=== PATIENT | female | born 1960 | race Caucasian/White ===

== ENCOUNTER 2019-01-22 08:36 | Outpatient (CLI) | payer OTHER | END 2019-01-22 23:59 | disposition home or self-care (01) | LOC: RAD 08:36 | PROVIDERS: ATTEND Family Medicine | DX: R74.8 Abnormal levels of other serum enzymes (principal) | CPT/HCPCS: 76700 ==

== ENCOUNTER 2019-04-10 10:14 | Day surgery (SDC) | payer OTHER ==
[2019-04-10] VITALS (8 sets, daily range): BP systolic 114–128; BP diastolic 60–87
[~2019-04-10] VITALS: Ht 160 cm; Wt 68.2 kg
[2019-04-10] MEDS ORDERED: ZOL50T PO (10:33)
[2019-04-10] MEDS ORDERED: LEVO25TA2 PO (10:34)
[2019-04-10] MEDS ORDERED: OMEP20TA5 PO (10:35)
[2019-04-10] MEDS ORDERED: ALPR-623 PO (10:35)
[2019-04-10] MEDS ORDERED: fentaNYL/PF 50MCG/1 ML 2ML syringe ONE (10:49)
[2019-04-10] MEDS ORDERED: MIDAZolam 5mg/5ml vial ONE (10:50)
[2019-04-10] MEDS ORDERED: LIDOcaine Viscous 15ml cup ONE (10:50)
== END 2019-04-10 12:41 | disposition home or self-care (01) ==
LOC: GI LAB 10:14
PROVIDERS: ATTEND Internal Medicine Gastroenterology
DX: K31.1 Adult hypertrophic pyloric stenosis (principal); R10.9 Unspecified abdominal pain; K31.5 Obstruction of duodenum
CPT/HCPCS: 43249; 74176; C1726; J2250; J3010; J7040; 99152; A4620

== ENCOUNTER 2019-05-22 06:45 | Day surgery (SDC) | payer OTHER ==
[~2019-05-22] VITALS: Ht 160 cm; Wt 68.2 kg
[~2019-05-22 06:45] MED LIST: ALPR-623 PO; LEVO25TA2 PO; OMEP20TA5 PO; SERT-153 PO
[2019-05-22] MEDS ORDERED: fentaNYL/PF 50MCG/1 ML 2ML syringe ONE (06:49)
[2019-05-22] MEDS ORDERED: LIDOcaine Viscous 15ml cup ONE (06:49)
[2019-05-22] MEDS ORDERED: MIDAZolam 5mg/5ml vial ONE (06:49)
[2019-05-22 06:53] VITALS: BP 136/77
[2019-05-22 08:10] VITALS: BP 139/81
[2019-05-22 08:20] VITALS: BP 135/76
[2019-05-22 08:30] VITALS: BP 126/79
[2019-05-22 08:37] VITALS: BP 127/79
== END 2019-05-22 08:40 | disposition home or self-care (01) ==
LOC: GI LAB 06:45
PROVIDERS: ATTEND Internal Medicine Gastroenterology
DX: K31.1 Adult hypertrophic pyloric stenosis (principal); K31.5 Obstruction of duodenum
CPT/HCPCS: 43245; 99152; C1726; J2250; J3010; J7040; A4620

== ENCOUNTER 2020-11-13 05:35 | Day surgery (SDC) | payer BC ==
[2020-11-06 11:19] LABS: EOSINOPHILS # (AUTO) 0.1 X10'3 (0-0.9); EOSINOPHILS % (AUTO) 1.8 % (0-6); LYMPHOCYTES # (AUTO) 1.8 X10'3 (1.1-4.8); LYMPHOCYTES % (AUTO) 40.4 % (21-51); MEAN CORPUSCULAR HEMOGLOBIN 29.9 PG (27.0-31.0); MEAN CORPUSCULAR HGB CONC 33.5 g/dL (33.0-36.5); MEAN CORPUSCULAR VOLUME 89.3 FL (78-98); MEAN PLATELET VOLUME 7.9 FL (7.4-10.4); MONOCYTES # (AUTO) 0.4 X10'3 (0-0.9); MONOCYTES % (AUTO) 8.2 % (2-12); NEUTROPHILS # (AUTO) 2.2 X10'3 (1.8-7.7); NEUTROPHILS % (AUTO) 48.6 % (42-75); PRE OP HEMATOCRIT 40.9 % (35.0-45.0); PRE OP HEMOGLOBIN 13.7 g/dL (12.0-16.0); PRE OP PLATELET COUNT 230 X10'3 (140-440); RED BLOOD COUNT 4.58 X10'6 (4.20-5.60); RED CELL DISTRIBUTION WIDTH 13.3 % (11.5-14.5)
[2020-11-06 11:26] LABS: ALBUMIN 3.9 G/DL (3.4-5.0); ALKALINE PHOSPHATASE 89 IU/L (46-116); BLOOD UREA NITROGEN 21 MG/DL (7-18); BUN/CREATININE RATIO 15.1 (6.6-38.0); CALCIUM 8.9 MG/DL (8.5-10.1); CHLORIDE 104 MMOL/L (99-107); CREATININE 1.39 MG/DL (0.40-0.90); PRE OP ALT 30 U/L (30-65); PRE OP ANION GAP 7 (8-16); PRE OP AST 31 U/L (10-37); PRE OP BILIRUB, TOTAL 0.2 MG/DL (0.0-1.0); PRE OP GLUCOSE 93 MG/DL (70-104); PRE OP POTASSIUM 4.6 MMOL/L (3.4-5.1); PRE OP SODIUM 138 MMOL/L (135-145); TOTAL CARBON DIOXIDE 26.7 MMOL/L (24-32); TOTAL PROTEIN 7.7 G/DL (6.4-8.2); eGFR 39 ML/MIN
[~2020-11-13] VITALS: Ht 160 cm; Wt 73.0 kg
[~2020-11-13 05:35] MED LIST changes: -OMEP20TA5 PO; +ZOLP5TAB8 PO; +clindamycin 600mg/D5W 50ml 50 ML IV ONE; +famotidine 20mg tablet PO ONE; +ringers solution, lacted 1,000 ML IV SCH
[2020-11-13] MEDS ORDERED: LIDOcaine 1% (10mg/ml) 2ml vial ONE (05:59)
[2020-11-13 07:35] VITALS: BP 130/76
[2020-11-13] MEDS ORDERED: BUPIVAcaine/PF 2.5mg/ml (0.25%) 10ml vial ONE (07:39)
[2020-11-13] MEDS ORDERED: LIDOcaine 1% 30ml preserv. free vial ONE (08:14)
[2020-11-13] MEDS ORDERED: fentaNYL/PF 50MCG/1 ML 2ML syringe ONE (08:18)
[2020-11-13] MEDS ORDERED: MIDAZolam 5mg/5ml vial ONE (08:18)
[2020-11-13] MEDS ORDERED: ketorolac trometh. 30mg/ml inj. ONE (08:20)
[2020-11-13 08:53] VITALS: BP 125/74
--- NOTE | 2020-11-13 08:53 | NUR ---
Received from OR via BED, accompanied by Anesthesiologist DR CAVANAUGH and report given by Anesthesiolgist. PATIENT A&OX4, DENIES PAIN, V/S WNL, NEUROVASCULAR CHECKS INTACT, 20G PIV RIGHT wrist, SCD ON, DRESSING TO LEFT AND RIGHT WRIST CDI ELEVATED WITH ICEBAG APPLIED.
[2020-11-13 09:00] VITALS: BP 119/75
[2020-11-13 09:10] VITALS: BP 124/85
--- NOTE | 2020-11-13 09:28 | NUR ---
PATIENT A&OX4, DENIES PAIN, V/S WNL, NEUROVASCULAR CHECKS INTACT, 20G PIV right hand D/C, SCD OFF, DRESSING TO RIGHT WRIST CDI ELEVATED WITH ICEBAG APPLIED. I HAVE REVIEWED D/C INSTRUCTIONS WITH PATIENT AND FAMILY AND THEY HAVE VERBALIZED UNDERSTANDING. PATIENT D/C HOME WITH ALL BELONGINGS AND FAMILY GAVE TRANSPORT HOME. Pt has tramadol at home according to S/O.
== END 2020-11-13 09:28 | disposition home or self-care (01) ==
LOC: PAS 05:35
PROVIDERS: ATTEND Orthopaedic Surgery Hand Surgery
DX: M65.331 Trigger finger, right middle finger (principal); M65.332 Trigger finger, left middle finger; Z20.822 Contact with and (suspected) exposure to COVID-19; M18.12 Unilateral primary osteoarthritis of first carpometacarpal joint, left hand; F41.9 Anxiety disorder, unspecified; E03.9 Hypothyroidism, unspecified; Z79.899 Other long term (current) drug therapy; Z88.0 Allergy status to penicillin; Z98.890 Other specified postprocedural states
CPT/HCPCS: 26055; 36415; 80053; 82948; 85025; 87635; 93005; J1885; J2001; J2250; J3010; J3490; A4215; A4615; A6449; J7120

== ENCOUNTER 2025-04-10 12:18 | Inpatient (IN) | payer OTHER, MEDICARE ==
[~2025-04-10] VITALS: Ht 160 cm; Wt 69.5 kg
[~2025-04-10 12:18] MED LIST changes: -clindamycin 600mg/D5W 50ml 50 ML IV ONE; -famotidine 20mg tablet PO ONE; -ringers solution, lacted 1,000 ML IV SCH
--- NOTE | 2025-04-10 12:23 | ELECTROCARDIOGRAPH REPORT ---
[facility] Test Date: 2025-04-10 Test Time: 12:21:43 Pat Name: VENKATA GOLD Department: EMERGENCY ROOM Room: Gender: F [employer] Supervisor: SARA : 1960 Requested By: KULWANT OROZCO Order Number: [id number] Reading MD: Measurements Intervals [place] Rate: 84 P: 79 IL: 147 QRS: 61 QRSD: 84 T: 73 QT: 387 QTc: 458 Interpretive Statements Sinus rhythm Abnormal R-wave progression, early transition Please click the below link to view image of tracing.
[2025-04-10 12:38] LABS: MEAN PLATELET VOLUME 7.5 FL (7.4-10.4); RED CELL DISTRIBUTION WIDTH 13.1 % (11.5-14.5)
--- NOTE | 2025-04-10 12:55 | RADIOLOGY REPORT ---
CHEST RADIOGRAPH Indication: CP Technique: Single frontal view of the chest was obtained Comparison: None FINDINGS: The cardiac silhouette is unremarkable. The lungs demonstrate no pulmonary airspace consolidation. Th e pulmonary vasculature is unremarkable. There is no pleural effusion.. There is no pneumothorax. IMPRESSION: No pulmonary airspace consolidation.
[2025-04-10 12:59] LABS: CREATININE 1.07 MG/DL (0.40-0.90); PRO BRAIN NATRIURETIC PEPTIDE 193 PG/ML (0-125); TOTAL CARBON DIOXIDE 28.2 MMOL/L (24-32); eGFR 51 ML/MIN
--- NOTE | 2025-04-10 14:00 | Physician Documentation ---
History of Present Illness ~ Chief Complaint: Chest Pain Stated Complaint: CHEST TIGHTNESS Time Seen by MD: 14:09 HPI Patient is seen today with complaints of chest pain that started just earlier today while she was driving in her car. Patient states it was a tight squeezing type chest pain and she did have some confusion as well as associated diaphoresis and nausea and two episodes of vomiting. Patient denies any prior history of hypertension or heart disease and denies taking any medications currently. She currently states she still feels little confused and has no other concern or complaint at this time. Medication Reconciliation Allergies: Coded Allergies: Penicillins (Verified Allergy, Unknown, HIVES, SWELLING, 11/12/20) Scheduled Alprazolam* (Xanax*), 1 TAB PO QDAY PRN, (Reported) Sertraline HCl (Sertraline HCl), 3 TABLET PO DAILY, (Reported) levothyroxine sodium* (Synthroid*), 75 MCG PO DAILY, (Reported) Scheduled PRN Zolpidem Tartrate* (Ambien*), 1 TAB PO HS PRN for INSOMNIA, (Reported) Review of Systems Constitutional: Denies: chills, fever, weakness Eyes: Denies: pain, blurred vision ENT: Denies: ear pain, nose pain, throat pain, mouth pain Respiratory: Denies: cough, shortness of breath Cardiovascular: Denies: chest pain, palpitations Gastrointestinal: Denies: abdominal pain, nausea, vomiting Genitourinary: Denies: burning, dysuria Female Genitalia: Denies: vaginal discharge, pelvic pain Neurological: Denies: headache, dizziness Musculoskeletal: Denies: pain, swelling Integumentary: Denies: rash, lesions Allergic/Immunologic: Denies: hives, itching Hematologic/Lymphatic: Denies: no symptoms reported Psychiatric: Denies: depression, anxiety Physical Exam Vital Signs: Temperature: 97.6, Heart Rate: 81, Respiratory Rate: 16, BP: 169/81, Pulse Oximetry: 95 Oxygen Flow Rate: 0 Physical Exam General: Awake and Alert, no acute distress. HEENT: Conjunctiva pink, Sclera clear, Mucus Membranes moist. Neck: Supple without masses and tenderness. Resp: Unlabored. Lungs clear to auscultation bilaterally. Heart: Regular Rate and rhythm, normal S1 and S2 without murmur, rub or gallop. Abdomen: Soft and non tender no organomegaly Extremities: No cyanosis,clubbing or edema. Skin: Warm and Dry. Progress Results/Orders Results/Orders Orders - WILDER,MICHAEL Libby PAC Ct Head (04/10/25 14:43) Page Hospitalist (04/10/25 16:00) Fill Out Med Reconciliation (04/10/25 16:00) Completed Orders - MICHAEL WILDER Libby PAC Ct Head (04/10/25 14:43) Vital Signs 04/10/25 04/10/25 04/10/25 12:22 14:55 14:56 Temp 97.6 Pulse 81 62 Resp 16 10 11 B/P (MAP) 169/81 164/83 (110) Pulse Ox 95 99 O2 Flow Rate 0 Laboratory Tests Test 04/10/25 12:26 04/10/25 14:27 White Blood Count 6.5 Red Blood Count 4.42 Hemoglobin 13.3 Hematocrit 39.2 Mean Corpuscular Volume 88.6 Mean Corpuscular Hemoglobin 30.0 Mean Corpuscular Hemoglobin Concent 33.9 Red Cell Distribution Width 13.1 Platelet Count 280 Mean Platelet Volume 7.5 Neutrophils (%) (Auto) 73.8 Lymphocytes (%) (Auto) 19.6 L Monocytes (%) (Auto) 4.9 Eosinophils (%) (Auto) 1.0 Basophils (%) (Auto) 0.7 Neutrophils # (Auto) 4.8 Lymphocytes # (Auto) 1.3 Monocytes # (Auto) 0.3 Eosinophils # (Auto) 0.1 Basophils # (Auto) 0.0 CBC Comment Sodium Level 141 Potassium Level 4.1 Chloride Level 104 Carbon Dioxide Level 28.2 Anion Gap 9 Blood Urea Nitrogen 15 Creatinine 1.07 H Estimated GFR/1.73 m2 51 BUN/Creatinine Ratio 14.0 Glucose Level 115 H Calcium Level 9.8 Troponin I High Sensitivity < 4 L 4 Troponin I High Sens Percent Delta Troponin I Hi Sens Absolute Change Pro-B-Type Natriuretic Peptide 193 H Albumin 4.4 Chemistry Comments EKG/XRAY/CT/US/VASC/MRI EKG : Additional Comment EKG interpreted by myself today shows normal sinus rhythm with regular rate at 84 beats per minute, no sign of ST segment elevation and no ischemic changes. And no axis deviation. Chest X-Ray : Additional Comments [facility] [address], [place] - [address] DIAGNOSTIC RADIOLOGY Patient: VENKATA GOLD Medical Record: [id number] [facility] : 1960, Age: 64 Sex: Female Location: ER Patient Status: [facility] ER Service Date/Time: 04/10/25/ 1221 Ordering Physician: KULWANT OROZCO MD Exam: CHEST,SINGLE VIEW CHEST RADIOGRAPH Indication: CP Technique: Single frontal view of the chest was obtained Comparison: None FINDINGS: The cardiac silhouette is unremarkable. The lungs demonstrate no pulmonary airspace consolidation. The pulmonary vasculature is unremarkable. There is no pleural effusion.. There is no pneumothorax. IMPRESSION: No pulmonary airspace consolidation. Electronically Signed by:RAMESH CHACON MD Date & Time: 04/10/25 125 Dictated by: RAMESH CHACON MD Dictation date and time: 04/10/25 125 Primary Care Provider: NO PRIMARY CARE PROVIDER cc: KULWANT OROZCO MD ~ Heart Score: Heart Score Response (Comments) Value History Moderate Suspicious 1 EKG Normal 0 Age >65 2 Risk Factors 1 or 2 risk factors 1 Troponin Normal limit 0 Total 4 Medical Decision Making Findings Patient is seen today with complaints of chest pain that started just earlier today while she was driving in her car. Patient states it was a tight squeezing type chest pain and she did have some confusion as well as associated diaphoresis and nausea and two episodes of vomiting. Patient denies any prior history of hypertension or heart disease and denies taking any medications currently. She currently states she still feels little confused and has no other concern or complaint at this time. Patient's labs initially showed low troponin levels less than four, and elevated pro BNP just over 190 and were otherwise largely unremarkable. Hospitalist was consulted given patient's heart score and concerning history and physical exam findings. CT scan of head was unremarkable. Be admitted for further eval and treatment. Departure Disposition: ADMITTED INPATIENT Admitted to Inpatient Unit: to hospitalist Admission Level of Care: Med/Surg with Tele Impression: Primary Impression: Chest pain at rest Additional Impressions: Elevated brain natriuretic peptide (BNP) level HTN (hypertension) Qualified Codes: I10 - Essential (primary) hypertension Condition: Improved Additional Instructions: Patient's labs initially showed low troponin levels less than four, and elevated pro BNP just over 190 and were otherwise largely unremarkable. Hospitalist was consulted given patient's heart score and concerning history and physical exam findings. CT scan of head was unremarkable. Be admitted for further eval and treatment. Referrals: NO PRIMARY CARE PROVIDER (PCP) Signature Scribe Signature: No scribe Attestation: No scribe ANNY LANG DENTAL CERAMIST HELPER Apr 10, 2025 14:00 MICHAEL WILDER PAC Apr 10, 2025 19:57
--- NOTE | 2025-04-10 14:58 | RADIOLOGY REPORT ---
EXAM: CT CT HEAD INDICATION: confusion sudden onset TECHNIQUE: CT of the head without intravenous contrast. Radiation Dose : 1. Head: CT Dose: CTDI volume is 52 mGy. Dose-length product is 923 mGy*cm The dose indicators for CT are the volume Computed Tomography (CT) Dose Index (CTDIvol) and the Dose Length Product (DLP), and are measured in units of mGy and mGy-cm, respectively. These indicators are not patient dose, but values generated from the CT scanner acquisition factors. The report includes radiation exposure data for exposures received during this examination. COMPARISON: None FINDINGS: There is no evidence of acute intracranial hemorrhage, extra-axial collection, mass effect, midline s hift, herniation or hydrocephalus. The ventricles, sulci and cisterns are age appropriate. The rivers-white differentiation is intact. The visualized paranasal sinuses and mastoid air cells are clear. The surrounding soft tissues and osseous structures are unremarkable. IMPRESSION: No acute intracranial abnormality. Radiation optimization: All CT scans at this facility use at least one of these dose optimization marguerite hniques: automated exposure control mA and/or kV adjustment per patient size (includes targeted exam s where dose is matched to clinical indication) or iterative reconstruction.
[2025-04-10] MEDS ORDERED: magnesium sulf-water 2g/50mL 50 ML IV PRN (16:15)
[2025-04-10] MEDS ORDERED: potassium Cl 40MEQ/1/2NS 520ml 520 ML IV PRN (16:15)
[2025-04-10] MEDS ORDERED: HYDROcodone/acetaminophen 10/325mg tab PO PRN (16:15)
[2025-04-10] MEDS ORDERED: HYDROcodone/acetaminophen 5mg/325mg tablet PO PRN (16:15)
[2025-04-10] MEDS ORDERED: magnesium sulf-water 4G/100mL 100 ML IV PRN (16:15)
[2025-04-10] MEDS ORDERED: magnesium Cl slow-release 64mg tablet PO PRN (16:15)
[2025-04-10] MEDS ORDERED: potassium Cl 20 mEq SR tablet PO PRN ×2 (16:15)
[2025-04-10] MEDS: pantoprazole 40mg Tablet.DR PO SCH (17:15)
--- NOTE | 2025-04-10 17:53 | HISTORY AND PHYSICAL ---
History & Physical Providers to CC ~ History of Present Illness Reason for Admit\Complaint: Chest tightness History of Present Illness Patient is 64-year-old female with nose pertinent medical history except for depression and insomnia . she takes sertraline for depression and Ambien for sleep. Patient was driving around 11 :30 down in [place] and then she n oticed that she is not feeling good . she noticed the chest tightness which was nonradiating was present only over the chest associated with some mild shortness of breaths dizziness and she was feeling sick to her stomach she had two episodes of vomiting, vomitus contained liquid food but no blood. As per her partner she had get a rate before this event started. Patient usually DrKellie for [facility] for living had no problem before she has no difficulty in driving no new changes in her medication. Patient did not noticed any rapid or irregular heart rate. Patient denied use of any tobacco alcohol or any recreational drugs. Patient's also mentioned that she noticed mild swelling over her ankles this morning. As per her partner just today she was not feeling good but otherwise she does not have any significant issues [facility] As per her partner the blood pressure is high only today and she does not have any blood pressure issues at home or in past. Allergies: Coded Allergies: Penicillins (Verified Allergy, Unknown, HIVES, SWELLING, 11/12/20) Home Medications Home Medications Active Reported Ambien* (Zolpidem Tartrate) 5 Mg Tablet 1 Tab PO HS PRN Xanax* (Alprazolam) 0.25 Mg Tablet 1 Tab PO QDAY PRN 30 Days Synthroid* (Levothyroxine Sodium) 25 Mcg Tablet 75 Mcg PO DAILY 30 Days Sertraline HCl 50 Mg Tablet 3 Tablet PO DAILY Past Medical History Past Medical History No pertinent past medical history except for insomnia and chronic depression Past Surgical History Surgical History Comment No pertinent past surgical history Past Social History Social History Comment Denies use of any alcohol tobacco or any recreational drugs. She lives with her transgender ( SHAWANDA ) . Able to ambulate . Exam Vitals: Vital Signs Date Time Temp Pulse Resp B/P (MAP) Pulse Ox O2 Delivery O2 Flow Rate FiO2 04/10/25 17:16 59 12 157/88 (111) 98 04/10/25 12:22 97.6 0 General: General-patient not in any acute distress, alert awake oriented, not ill- appearing, age-appropriate, looks comfortable HEENT-atraumatic normocephalic, neck supple without elevated JVD, no thyromegaly or carotid bruit. No lymphadenopathy bilaterally. Eyes-no icterus or pallor seen in eyes Chest-clear to auscultation bilaterally, breathing nonlabored no tachypnea, no wheezing, no crepitation, no crackles. Heart-S1-S2 normal, regular heart rate no murmur Abdomen bowel sounds positive on auscultation, soft nondistended nontender no guarding, no rigidity Skin no active skin rash Neurology-grossly intact, nonfocal alert awake oriented Extremity- no pedal edema able to move all 4 extremities Psychiatry - patient is not confused or agitated cooperated during physical examination Diagnostic Data Last Recorded Lab Results: 04/10/25 1226 04/10/25 1226 Additional Plan Patient is 64-year-old female with no pertinent medical history except for depression and insomnia . Patient is admitted for chest pain rule out acute coronary syndrome. Ordered echocardiogram and Lexiscan. Patient's all labs and diagnostic workup results discussed in visit with patient and with Shawanda. All questions answered to the best of my professional medical knowledge. We will do home medication reconciliation once updated in electronic record system by nursing staff or pharmacist. As per patient she only takes sertraline and Ambien. Patient will be admitted to PCU with tele monitor. Patient is started on heart healthy diet for now and we will keep NPO after midnight for Lexiscan. Code status discussed with the patient patient wishes to stay full code. Patient's current condition is guarded we will continue to follow patient in a.m.. Date of Service: Apr 10, 2025 Billing Provider: BRAYDEN SARAVIA MD Common Visit Codes: 22946-[id number] INP/OBS CARE (HIGH) Secondary Visit Codes: 83020-[id number] CARE PLAN 30 MINUTES BRAYDEN SARAVIA MD Apr 10, 2025 17:52
[2025-04-10 20:00] VITALS: RESP 13; O2SAT 95
[2025-04-10] MEDS: heparin, porcine 5000 units/ml vial SQ SCH (20:37)
[2025-04-10 22:00] VITALS: BP 139/74; PULSE 62; RESP 13; TEMP 97.9; O2SAT 95
[2025-04-11] VITALS (11 sets, daily range): BP systolic 112–146; BP diastolic 62–81; PULSE 62–121; RESP 15–18; TEMP 96.8–97; O2SAT 95–98
[2025-04-11 06:51] LABS: MEAN PLATELET VOLUME 7.6 FL (7.4-10.4); RED CELL DISTRIBUTION WIDTH 13.4 % (11.5-14.5)
[2025-04-11 07:05] LABS: CREATININE 1.09 MG/DL (0.40-0.90); TOTAL CARBON DIOXIDE 27.8 MMOL/L (24-32); eCRCL 43 ML/MIN; eGFR 50 ML/MIN
[2025-04-11] MEDS: levoTHYROXINE 75mcg tablet PO SCH (07:42)
[2025-04-11] MEDS ORDERED: ALPRAZolam 0.25mg tablet PO PRN (08:00)
--- NOTE | 2025-04-11 09:08 | PROGRESS NOTE- Residence ---
Progress Note - Resident Providers to CC Resident Creating Document: BAKARI CUEVA RES ~ Antibiotic Timeout Antibiotic Ordered?: No Subjective Patient is seen and examined at bedside. Patient states complete resolution of yesterday symptoms, denies chest pain, shortness of breath, nausea or vomiting. Patient is in NPO for a stress test today, no other complaints at this moment. Objective Vital Signs Date Time Temp Pulse Resp B/P (MAP) Pulse Ox O2 Delivery O2 Flow Rate FiO2 04/11/25 06:00 96.9 67 16 133/74 (93) 95 Room Air 04/10/25 12:22 0 Laboratory Tests Test 04/10/25 12:26 04/10/25 14:27 04/11/25 06:06 White Blood Count 6.5 X10'3 5.4 X10'3 Red Blood Count 4.42 X10'6 4.40 X10'6 Hemoglobin 13.3 g/dl 13.2 g/dl Hematocrit 39.2 % 38.9 % Mean Corpuscular Volume 88.6 FL 88.4 FL Mean Corpuscular Hemoglobin 30.0 PG 30.0 PG Mean Corpuscular Hemoglobin Concent 33.9 g/dL 34.0 g/dL Red Cell Distribution Width 13.1 % 13.4 % Platelet Count 280 X10'3 269 X10'3 Mean Platelet Volume 7.5 FL 7.6 FL Neutrophils (%) (Auto) 73.8 % 41.4 % Lymphocytes (%) (Auto) 19.6 % 44.1 % Monocytes (%) (Auto) 4.9 % 9.1 % Eosinophils (%) (Auto) 1.0 % 4.4 % Basophils (%) (Auto) 0.7 % 1.0 % Neutrophils # (Auto) 4.8 X10'3 2.3 X10'3 Lymphocytes # (Auto) 1.3 X10'3 2.4 X10'3 Monocytes # (Auto) 0.3 X10'3 0.5 X10'3 Eosinophils # (Auto) 0.1 X10'3 0.2 X10'3 Basophils # (Auto) 0.0 X10'3 0.1 X10'3 CBC Comment Sodium Level 141 MMOL/L 139 MMOL/L Potassium Level 4.1 MMOL/L 4.3 MMOL/L Chloride Level 104 MMOL/L 104 MMOL/L Carbon Dioxide Level 28.2 MMOL/L 27.8 MMOL/L Anion Gap 9 7 Blood Urea Nitrogen 15 MG/DL 15 MG/DL Creatinine 1.07 MG/DL 1.09 MG/DL Estimated GFR/1.73 m2 51 ML/MIN 50 ML/MIN BUN/Creatinine Ratio 14.0 13.8 Glucose Level 115 MG/DL 96 MG/DL Calcium Level 9.8 MG/DL 9.2 MG/DL Troponin I High Sensitivity < 4 ng/L 4 ng/L Troponin I High Sens Percent Delta % Troponin I Hi Sens Absolute Change ng/L Pro-B-Type Natriuretic Peptide 193 PG/ML Albumin 4.4 G/DL 3.8 G/DL Chemistry Comments Total Bilirubin 0.4 MG/DL Aspartate Amino Transf (AST/SGOT) 29 U/L Alanine Aminotransferase (ALT/SGPT) 28 U/L Alkaline Phosphatase 85 IU/L Total Protein 7.5 G/DL Globulin 3.7 G/DL Albumin/Globulin Ratio 1.0 Result Diagram: 04/11/2560504/11/25 06 General-patient not in any acute distress, alert awake oriented, not ill- appearing, age-appropriate, looks comfortable HEENT-atraumatic normocephalic, neck supple without elevated JVD, no thyromegaly or carotid bruit. No lymphadenopathy bilaterally. Eyes-no icterus or pallor seen in eyes Chest-clear to auscultation bilaterally, breathing nonlabored no tachypnea, no wheezing, no crepitation, no crackles. Heart-S1-S2 normal, regular heart rate no murmur Abdomen bowel sounds positive on auscultation, soft nondistended nontender no guarding, no rigidity Skin no active skin rash Neurology-grossly intact, nonfocal alert awake oriented Extremity- no pedal edema, able to move all 4 extremities Psychiatry - patient is not confused or agitated, cooperated during physical examinatio Assessment Assessment Chest tightness 04/11/2025 Waiting for echocardiogram report Patient is due for Lexiscan today We will follow-up after the exam We will monitor for new symptoms Depression We will continue home medications Code Status: Full code DVT prophylaxis: Patient refused Analgesia/sedation: Morphine/[place] Line/tube: PIV GI prophylaxis: None Nutrition: NPO until surgery, Prognosis: Guarded Disposition: Date of Service: Apr 11, 2025 Billing Provider: BRAYDEN SARAVIA MD Common Visit Codes: [id number] INP/OBS CARE(HIGH) BAKARI CUEVA, RES Apr 11, 2025 09:08 BRAYDEN SARAVIA MD Apr 11, 2025 15:56
[2025-04-11] MEDS ORDERED: aminophylline 250mg/10ml inj. IV ONE (09:15)
[2025-04-11] MEDS: regadenoson 0.4mg/5ml syringe IV ONE (09:29)
[2025-04-11] MEDS: ondansetron/PF 4mg/2ml inj IV PRN (10:13)
--- NOTE | 2025-04-11 11:47 | RADIOLOGY REPORT ---
EXAM: NM NM JUANJOSE SCAN HISTORY: chest pain r/o ACS COMPARISON: None TECHNIQUE: REST STUDY: 8.4 mCi of Technetium 99m-Tetrofosmin. STRESS STUDY: 31.9 mCi of Technetium 99m-Tetrofosmin. The patient was stressed with 0.4 mg regadenoso n IV. Cardiac-gated tomographic images of the heart were obtained in the short and long axis projections. I mages were obtained at rest and immediately following stress. Stress and rest images were performed o n the same day. FINDINGS: No perfusion defects are identified on the stress or rest images. Wall motion is normal. Left ventric ular ejection fraction is 74%. IMPRESSION: 1. No evidence of old myocardial infarct or stress-induced ischemia. 2. Normal wall motion and LVEF.
[2025-04-11] MEDS ORDERED: ACET-1008 PO (12:48)
--- NOTE | 2025-04-11 14:14 | CARDIOLOGY REPORT ---
APPROVED REPORT EXAM: Comprehensive 2D, Doppler, and color-flow Echocardiogram. Patient Location: ER RM 14 Blood Pressure: 164/83 mmHg Heart Rate: 63 bpm Indications Angina ProBNP: 193 NO CARE PROFESSIONALS NO Previous ECHO 2D Dimensions LA Diam3.0 cm IVSd 0.8 (0.7-1.1cm) LVDd 4.2 cm PWd 0.9 (0.7-1.1cm) IVSs 1.1 (0.8-1.2cm) LVDs 3.0 (2.5-4.0cm) PWs 1.3 (0.8-1.2cm) LVOT Diameter 1.94 (1.8-2.4cm) LVEF(%) 55.5 (>50%) Ao Asc Diam.2.54 cm IVC 13.81 mmFS (%) 28.6 % SV 43.9 ml CO 2.8 L/min M-Mode Dimensions Left Atrium(MM) 3.61 (2.5-4.0cm) Aortic Root 2.26 (2.2-3.7cm) Aortic Cusp Exc 1.52 (1.5-2.0cm) MV EPSS 0.6 (<0.5cm) Aortic Valve AoV Peak Jose Enrique. 138.8 cm/s AoV VTI 24.9 cm AO Peak GR. 7.7 mmHg AO Mean GR. 3 mmHg LVOT VTI 20.10 cm LVOT Peak Jose Enrique. 89.7 cm/s JUNIOR(VTI)/BSA 2.39 cm2/m2 JUNIOR (VTI) 2.39 cm2 Mitral Valve MV E Velocity 70.6 cm/s MV Peak Gr. 4 mmHg MV DECEL TIME 212 ms MV A Velocity 76.5 cm/s MV PHT 64 ms E/A Ratio 0.9 MVA (PHT) 3.44 cm2 MV VMax93.8 cm/s TDI Lateral E' P. V10.18 cm/s E/Lateral E' 6.9 Pulmonary Valve PAEDP12.31 mmHg Tricuspid Valve TR P. Velocity 257 cm/s RAP ESTIMATE 10 mmHg TR Peak Gr. 26 mmHg RVSP 36 mmHg LEFT VENTRICLE Normal LV size and wall thickness. Overall systolic function is normal. Overall LVEF is 55-60%. RIGHT VENTRICLE RV is normal size and function. Estimated PA systolic pressure of 36 mm of mercury ATRIA The left atrium size is normal. AORTIC VALVE Trileaflet AV appears mildly sclerotic without stenosis. No insufficiency. MITRAL VALVE Mitral valve leaflets are mildly thickened without stenosis. Mild regurgitation. TRICUSPID VALVE The tricuspid valve is normal in structure with mild regurgitation. PULMONIC VALVE The pulmonary valve is normal in structure with trace insufficiency. GREAT VESSELS The aortic root is normal in size. The ascending aorta is normal in size. The IVC is normal in size a nd collapses >50% with inspiration. PERICARDIUM Normal pericardium. No effusion. Other Information Study Quality: Adequate Conclusion Overall LVEF is 55-60%. Normal LV size and wall thickness. Overall systolic function is normal. RV is normal size and function. Estimated PA systolic pressure of 36 mm of mercury Trileaflet AV appears mildly sclerotic without stenosis. No insufficiency. Mitral valve leaflets are mildly thickened without stenosis. Mild regurgitation. The tricuspid valve is normal in structure with mild regurgitation. The pulmonary valve is normal in structure with trace insufficiency. Normal pericardium. No effusion.
--- NOTE | 2025-04-11 14:37 | DISCHARGE SUMMARY-Residence ---
Discharge Summary Providers to CC Resident Creating Document: BAKARI CUEVA RES ~ Discharge Summary Admission Diagnosis: Chest tightness Hospital Course DATE OF ADMISSION: 04/10/2025 DATE OF DISCHARGE: 04/11/2025 Lab results Hemoglobin 13.2 WBC 5.4 Platelet count 269 Sodium 139 Potassium 4.3 BUN 15 Creatinine 1.09 Troponin high sensitive less than [address] 04/10/25 No acute intracranial abnormality. Echocardiogram 04/10/25 Overall LVEF is 55-60%. Normal LV size and wall thickness. Overall systolic function is normal. RV is normal size and function. Estimated PA systolic pressure of 36 mm of mercury Trileaflet AV appears mildly sclerotic without stenosis. No insufficiency. Mitral valve leaflets are mildly thickened without stenosis. Mild regurgitation. The tricuspid valve is normal in structure with mild regurgitation. The pulmonary valve is normal in structure with trace insufficiency. Normal pericardium. No effusion. Lexiscan 04/11/25 1. No evidence of old myocardial infarct or stress-induced ischemia. 2. Normal wall motion and LVEF. Discharge Diagnosis\Comment: Low risk chest pain Operations\Procedures: None Consultants: None Complications: None Condition on DC: Stable Continued Medications: Alprazolam* (Xanax*) 0.25 Mg Tablet 1 TAB PO QDAY PRN for 30 Days, TAB levothyroxine sodium* (Synthroid*) 25 Mcg Tablet 75 MCG PO DAILY for 30 Days, TAB Sertraline HCl (Sertraline HCl) 50 Mg Tablet 3 TABLET PO DAILY, TABLET 5 Refills Zolpidem Tartrate* (Ambien*) 5 Mg Tablet 1 TAB PO HS PRN for INSOMNIA, TAB Discharge Summary: This is a 62-year-old female patient admitted after chest tightness that started suddenly while she was driving in her car. Patient stated it was a tight squeezing type chest pain and she did have some confusion as well as associated diaphoresis, nausea and two episodes of vomiting. Patient denied any prior history of hypertension or heart disease and denies taking any medications currently. The patient had no complaint admission. EKG did not show any signs of ischemia, troponin core was negative, echocardiogram did not show any signs of heart failure or previous ischemia, a stress test was negative for myocardial infarction. Today the patient is completely asymptomatic, without any complaints since the admission. The patient is stable to be started and to follow-up with her PCP. The patient was discharged with the following instructions Please follow-up with your primary care physician Follow-up with a noise tester if intermittent chest tightness for further evaluation Follow-up with your psychiatrist for anxiety and insomnia medications Take Tylenol 650 mg every 8 hours in case of pain Continue home medications Call 911 or go to the nearest emergency department if you experience severe chest pain, shortness of breath, persistent fever or any other worrisome symptoms. *Problems/Diagnosis: (1) Chest pain at rest Status: Resolved Total Time Spent on D/C: Up to 30 Minutes Date of Service: Apr 11, 2025 Billing Provider: BRAYDEN SARAVIA MD Common Visit Codes: 27376-[id number]/[id number] DISCH DAY >30min BAKARI CUEVA, RES Apr 11, 2025 14:27 BRAYDEN SARAVIA MD Apr 11, 2025 15:55
== END 2025-04-11 14:36 | disposition home or self-care (01) | DRG 313 ==
LOC: ER 12:18 → ED HOLD 16:19 → PCU 3S 19:30
PROVIDERS: ADMIT Internal Medicine; ATTEND Internal Medicine
PROC: 4A02XM4 Measurement of Cardiac Total Activity, External Approach (ICD-10-PCS; principal; 2025-04-11)
PROC: 3E033HZ Introduction of Radioactive Substance into Peripheral Vein, Percutaneous Approach (ICD-10-PCS; 2025-04-11)
DX: R07.89 Other chest pain (principal); I10 Essential (primary) hypertension; F32.A Depression, unspecified; G47.00 Insomnia, unspecified; R79.89 Other specified abnormal findings of blood chemistry; Z79.899 Other long term (current) drug therapy; Z88.0 Allergy status to penicillin
CPT/HCPCS: 36415; 70450; 71045; 78452; 80048; 80053; 83880; 84484; 85025; 87081; 93005; 93017; 93306; 99285; A9500; G0378; J1644; J2405; J2785